=== PATIENT | male | born 1995 | race Caucasian/White ===

== ENCOUNTER 2024-05-16 02:53 | Emergency (ER) | payer OTHER ==
[~2024-05-16] VITALS: Ht 165.1 cm; Wt 60.0 kg
[2024-05-16 03:07] VITALS: TEMP 97.7
[2024-05-16] MEDS: KETOROLAC TROMETHAMINE 30 MG/ML VIAL IVP ONE (03:52)
[2024-05-16] MEDS: SODIUM CHLORIDE 0.9% 1,000 ML IV ONE ×2 (03:52→06:38)
[2024-05-16 04:01] LABS: BASOPHILS % (AUTO) 0.2 % (0.0-2.0); HEMATOCRIT 41.1 % (41-53); HEMOGLOBIN 13.7 g/dL (13.5-17.5); LYMPHOCYTES % (AUTO) 17.8 % (22.0-44.0); MEAN CORPUSCULAR HEMOGLOBIN 28.7 pg (26.0-34.0); MEAN CORPUSCULAR HGB CONC 33.4 G/dL (31.0-37.0); MEAN CORPUSCULAR VOLUME 86 fL (80-100); MONOCYTES # (AUTO) 1.1 K/uL (0.1-1.0); MONOCYTES % (AUTO) 10.3 % (2.0-9.0); NEUTROPHILS # (AUTO) 7.8 K/uL (1.8-7.7); NEUTROPHILS % (AUTO) 70.7 % (40.0-70.0); PLATELET COUNT (AUTO) 194 K/uL (150-450); RED BLOOD CELL COUNT(AUTO) 4.78 MIL/uL (4.50-5.90); RED CELL DISTRIBUTION WIDTH 13.5 % (11.5-14.5); WHITE BLOOD COUNT (AUTO) 11.1 K/uL (4.5-11.0)
[2024-05-16 04:05] LABS: CALCIUM, TOTAL 8.9 mg/dL (8.8-10.5); CREATININE 1.57 mg/dL (0.60-1.30)
[2024-05-16 04:12] LABS: ALBUMIN 3.7 g/dL (3.4-5.0); BILIRUBIN,DIRECT 0.2 mg/dL (0.00-0.20); BILIRUBIN,TOTAL 0.9 mg/dL (0.1-1.0); TOTAL PROTEIN, SERUM 6.5 g/dL (6.4-8.2)
[2024-05-16] MEDS ORDERED: IOHEXOL 350 MG/ML 100 ML VIAL ONE (04:38)
[2024-05-16] MEDS ORDERED: SODIUM CHLORIDE 0.9% 100 ML ONE (04:38)
[2024-05-16] MEDS ORDERED: TAMSULOSIN HCL 0.4 MG CAPSULE PO ONE (05:30)
[2024-05-16] MEDS: TAMSULOSIN HCL 0.4 MG CAPSULE PO ONE (06:38)
[2024-05-16 06:47] LABS: APPEARANCE,URINE CLEAR (CLEAR); BILIRUBIN,URINE NEGATIVE (NEGATIVE); COLOR,URINE COLORLESS (YELLOW); GLUCOSE, URINE (UA) NEGATIVE (NEGATIVE); KETONES,URINE NEGATIVE (NEGATIVE); LEUKOCYTE ESTERASE ,URINE NEGATIVE (NEGATIVE); NITRATE,URINE NEGATIVE (NEGATIVE); OCCULT BLOOD,URINE SMALL (NEGATIVE); PROTEIN,URINE NEGATIVE (NEGATIVE); SPECIFIC GRAVITIY, URINE 1.006 (1.003-1.030); UROBILINOGEN,URINE <=1.0 mg/dL (<=1.0)
[2024-05-16 07:30] VITALS: BP 113/70; PULSE 54; RESP 16; O2SAT 100
[2024-05-16 07:30] LABS: BACTERIA,URINE None Seen /HPF (None Seen); RBC,URINE 0-2 /HPF (0-2); WBC,URINE None Seen /HPF (0-5)
== END 2024-05-16 08:43 ==
LOC: EMS 02:53
DX: N13.2 Hydronephrosis with renal and ureteral calculous obstruction (principal)
CPT/HCPCS: 99285; 74177; 96374; 96361; 80048; 80076; 81001; 83690; 85025; 36415; Q9967; J1885; J7030; J7050